=== PATIENT | male | born 1955 | race Caucasian/White ===

== ENCOUNTER 2017-01-16 01:09 | Inpatient (IN) ==
[2017-01-16] MEDS ORDERED: DUONEB (A & A) INH ONE (01:24)
[2017-01-16 01:33] LABS: MANUAL DIFF NEEDED? NO
[2017-01-16 01:35] LABS: BASO% 0.3 % (0.0-0.8); EOS# 0.07 X1000 (0.0-0.7); EOS% 0.5 % (0.0-10.0); HEMATOCRIT 48.7 % (42.0-52.0); HEMOGLOBIN 17.3 g/dL (14.0-18.0); IMM GRAN% 0.7 % (0.0-0.5); LYMPH# 5.01 X1000 (1.2-3.4); LYMPH% 35.6 % (20.5-51.1); MCH 32.3 PG (27-31); MCHC 35.5 g/dL (33-37); MCV 90.9 FL (81-99); MONO# 1.52 X1000 (0.11-0.59); MONO% 10.8 % (1.7-9.3); MPV 9.3 FL (7.4-10.4); NEUT% 52.1 % (42.2-75.2); PLT 302 X1000 (130-400); RBC 5.36 XMIL (4.7-6.1)
[2017-01-16 01:39] LABS: ALLEN TEST YES; BE -1.2 mmoll (-3.0-3.0); BLOOD TYPE ARTERIAL; DRAW SITE R BRACHIAL; METHB 1.6 % (0.0-1.5); PCO2(98.6) 50 mmHg (35-45); PO2(98.6) 92 mmHg (60-100); SAMPLE BLOOD; SAO2 98.9 % (95.0-100.0); THB 16.7 g/dL (11.5-17.4); pH(98.6) 7.32 (7.35-7.45)
[2017-01-16 01:41] LABS: MODALITY CANNULA
[2017-01-16 01:53] LABS: AGAP 12; ALBUMIN 4.5 g/dL (3.5-5.0); ALKALINE PHOSPHATASE 73 U/L (32-122); BUN 20 mg/dL (8-22); CALCIUM 9.2 mg/dL (8.8-10.2); CHLORIDE 97 mmol/L (98-107); COSMO 275; GOT 17 U/L (10-34); GPT 13 U/L (10-44); MAGNESIUM 1.9 mg/dL (1.5-2.7); POTASSIUM 4.5 mmol/L (3.5-5.1); SODIUM 136 mmol/L (136-145); TCO2 27 mmol/L (25-35); TOTAL BILIRUBIN 0.28 mg/dL (0.20-1.00)
[2017-01-16] MEDS ORDERED: SOLU-MEDROL IV ONE (02:22)
[2017-01-16] MEDS ORDERED: TYLENOL PO ONE (03:22)
--- NOTE | 2017-01-16 05:27 | EKG Report ---
Test Performed on : 01/16/2017 01:16:33 AM Test Reason : SOB Blood Pressure : / mmHG Vent. Rate : 125 BPM Atrial Rate : 125 BPM P-R Int : 124 ms QRS Dur : 074 ms QT Int : 312 ms P-R-T Axes : 085 073 080 degrees QTc Int : 450 ms Sinus tachycardia. Possible Left atrial enlargement Septal infarct , age undetermined Abnormal ECG When compared with ECG of 11-OCT-2015 04:23, No significant change was found Unconfirmed Result
[2017-01-16] MEDS ORDERED: NS 1,000 ML IV SCH (05:49)
[2017-01-16] MEDS: LOVENOX SUBQ SCH (06:22)
[2017-01-16] MEDS: SOLU-MEDROL IV SCH ×3 (06:22→20:34)
[2017-01-16] MEDS ORDERED: PNEUMOVAX 23 IM ONE (07:04)
[2017-01-16] MEDS: DUONEB (A & A) INH SCH ×5 (07:38→23:10)
--- NOTE | 2017-01-16 08:21 | HISTORY AND PHYSICAL ---
PRIMARY CARE PHYSICIAN: Dr. Joe Rubin. CHIEF COMPLAINT: Shortness of breath x2 days. HISTORY OF PRESENTING ILLNESS: A 61-year-old male with a history of COPD/emphysema who had presented to the emergency department with a 2 day history of having worsening shortness of breath. The patient states that he could not breathe and it seemed to be worsening. He was evaluated in the ER. He was given nebulizer treatments. He had some improvement but due to his presenting symptoms, it was thought that he would need hospitalization for further management. At the time of my examination, he stated he felt a little bit better but still was having some trouble breathing. He denied having any fevers, chills, chest pain, hemoptysis, melena, or weight changes but complained of shortness of breath and having cough. PAST MEDICAL HISTORY: Includes COPD/emphysema and hypertension. PAST SURGICAL HISTORY: None. ALLERGIES: No known drug allergies. CURRENT MEDICATIONS: As listed in the MAR. SOCIAL HISTORY: He has a 40 pack year history of smoking. Denies any history of alcohol or illicit drug use. FAMILY HISTORY: Positive for coronary artery disease in mother. REVIEW OF SYSTEMS: Twelve point review of systems listed as in the HPI. Other systems negative. PHYSICAL EXAMINATION: GENERAL: Cooperative, friendly male. He is resting more comfortably now. VITAL SIGNS: Temperature 98.8 degrees, pulse 127, respirations 34, blood pressure 183/126. HEENT: Atraumatic, normocephalic. Extraocular movements intact. PERRLA. NECK: No masses. CHEST: Rhonchi. CARDIOVASCULAR: Regular rate and rhythm. ABDOMEN: Soft. Positive bowel sounds. EXTREMITIES: No edema. NEUROLOGIC: He is awake, alert, oriented x3. : No bladder distention. SKIN: Warm. LABORATORIES AND STUDIES: WBCs 14.08, hemoglobin 17.3, hematocrit 48.7, platelets are 302,000. Sodium 136, potassium 4.5, chloride 97, BUN is 20, creatinine is 0.9, glucose is 110. ASSESSMENT: A 61-year-old male with a history of chronic obstructive pulmonary disease/emphysema and hypertension who had presented to the emergency department with a several day history of having shortness of breath. The patient will need hospitalization for further management. 1. Acute chronic obstructive pulmonary disease exacerbation. 2. Hypertension, uncontrolled. PLAN: 1. We will admit the patient to the medical floor with telemetry. 2. We will put patient on supplemental oxygen. 3. Continue with IV Solu-Medrol, and DuoNebs, and IV antibiotics. 4. We will monitor blood pressure closely and resume antihypertensive agents. 5. Put patient on DVT prophylaxis with Lovenox. 6. We will continue to follow and reassess. cc: Vickey Pedroza MD
--- NOTE | 2017-01-16 08:23 | Diag Imaging Result Document ---
PROCEDURE NAME: CHEST-PORTABLE - 01/16/2017 SINGLE FRONTAL RADIOGRAPH OF THE CHEST: COMPARISON: 09/05/2015. FINDINGS: The lungs are hyperinflated similar to the previous study suggesting COPD. The lungs are clear otherwise. There is no evidence of pleural fluid collection or pneumothorax. Cardiac silhouette and central vasculature are unremarkable. IMPRESSION: Stable COPD changes but no definite acute pathology.
[2017-01-16] MEDS: PRINIVIL PO SCH (09:52)
--- NOTE | 2017-01-16 14:39 | PROGRESS NOTE ---
DATE: 01/16/2017 SUBJECTIVE: Patient has no focal complaints. The patient is clinically improved. Wheezing has essentially stopped. We will continue steroids and antibiotics and follow clinically. He has not been initiated on antibiotics. He does have a little bit of a white count so I am going to put him on some doxycycline and we will continue to follow. cc: Jomar Fraser MD
[2017-01-16 16:34] LABS: URINE SOURCE CLEAN CATCH
[2017-01-16] MEDS: DOXYCYCLINE 100 MG in NS 250 ML IV SCH (16:57)
[2017-01-16 17:41] LABS: BILIRUBIN URINE NEGATIVE (NEGATIVE); BLOOD URINE TRACE-LYSED (NEGATIVE); CLARITY CLEAR (CLEAR); COLOR YELLOW; GLUCOSE URINE 250 mg/dL (NEGATIVE); LEUKOCYTES URINE NEGATIVE (NEGATIVE); NITRITE URINE NEGATIVE (NEGATIVE); PROTEIN URINE NEGATIVE (NEGATIVE); SP GRAVITY URINE 1.025; UROBILINOGEN URINE 0.2 EU/dL (0.2-1.0)
[2017-01-16 18:08] LABS: URINE CULTURE NEEDED? NO; URINE EPITHELIAL CELLS <10 /HPF (<10); URINE RBC <10 /HPF (<10); URINE WBC <10 /HPF (<10)
[2017-01-16 18:09] LABS: URINE CAST NONE SEEN /LPF; URINE CRYSTAL NONE SEEN /HPF
[2017-01-17] MEDS ORDERED: FLUZONE QUAD 2016-2017 SYRINGE IM ONE (00:01)
[2017-01-17] MEDS: DUONEB (A & A) INH SCH ×6 (02:39→23:17)
[2017-01-17] MEDS: SOLU-MEDROL IV SCH ×3 (04:37→19:47)
[2017-01-17] MEDS: DOXYCYCLINE 100 MG in NS 250 ML IV SCH ×2 (04:37→15:50)
[2017-01-17] MEDS: LOVENOX SUBQ SCH ×2 (04:37→06:36)
[2017-01-17 06:29] LABS: MANUAL DIFF NEEDED? NO
[2017-01-17] MEDS ORDERED: PNEUMOVAX 23 IM ONE (06:31)
[2017-01-17 06:42] LABS: BASO% 0.1 % (0.0-0.8); HEMATOCRIT 44.2 % (42.0-52.0); HEMOGLOBIN 15.7 g/dL (14.0-18.0); IMM GRAN# 0.06 X1000 (0.0-0.04); IMM GRAN% 0.5 % (0.0-0.5); LYMPH# 1.77 X1000 (1.2-3.4); LYMPH% 13.4 % (20.5-51.1); MCH 32.2 PG (27-31); MCHC 35.5 g/dL (33-37); MCV 90.8 FL (81-99); MONO# 0.83 X1000 (0.11-0.59); MONO% 6.3 % (1.7-9.3); MPV 9.3 FL (7.4-10.4); NEUT% 79.7 % (42.2-75.2); PLT 292 X1000 (130-400); RBC 4.87 XMIL (4.7-6.1)
[2017-01-17 07:17] LABS: AGAP 10; BUN 19 mg/dL (8-22); CALCIUM 9.4 mg/dL (8.8-10.2); CHLORIDE 98 mmol/L (98-107); COSMO 270; POTASSIUM 5.2 mmol/L (3.5-5.1); SODIUM 133 mmol/L (136-145); TCO2 25 mmol/L (25-35)
[2017-01-17] MEDS: PRINIVIL PO SCH (10:31)
--- NOTE | 2017-01-17 11:51 | PROGRESS NOTE ---
DATE: 01/17/2017 SUBJECTIVE: The patient's breathing is better. He still gets short of breath with exertion but overall feels much improved. OBJECTIVE: Vital signs: Blood pressure 139/82, heart rate of 87, respiratory rate of 14, temperature 97.8 degrees, 99% on 2 L. Cardiovascular: Regular rate and rhythm. Pulmonary: Bilateral breath sounds. Diminished at the bases. No wheezing. GI: Soft, nontender, nondistended. Bowel sounds are positive. LABORATORY DATA: White count 13, hemoglobin and hematocrit 15 and 44, platelets of 292,000. PROBLEM LIST: 1. Chronic obstructive pulmonary disease exacerbation, is resolving. We will continue to wean steroids. He is on nebulizer treatments, doxycycline. Will continue to follow closely. I think we will also evaluate for home oxygen. 2. Hypertension. Appears to be well controlled. DISPOSITION: If he qualifies for home oxygen I think he should be ready for discharge tomorrow. cc: Jomar Fraser MD
[2017-01-17] MEDS: TYLENOL PO PRN (19:50)
[2017-01-18] MEDS: DUONEB (A & A) INH SCH ×6 (03:07→22:47)
[2017-01-18] MEDS: DOXYCYCLINE 100 MG in NS 250 ML IV SCH ×2 (04:25→15:48)
[2017-01-18] MEDS: SOLU-MEDROL IV SCH ×5 (04:25→20:30)
[2017-01-18] MEDS: LOVENOX SUBQ SCH ×2 (04:28→06:03)
[2017-01-18 06:33] LABS: HEMATOCRIT 43.2 % (42.0-52.0); HEMOGLOBIN 15.2 g/dL (14.0-18.0); MCH 32.2 PG (27-31); MCHC 35.2 g/dL (33-37); MCV 91.5 FL (81-99); MPV 9.2 FL (7.4-10.4); RBC 4.72 XMIL (4.7-6.1)
[2017-01-18 06:51] LABS: AGAP 10; BUN 21 mg/dL (8-22); CALCIUM 9.1 mg/dL (8.8-10.2); CHLORIDE 95 mmol/L (98-107); COSMO 265; POTASSIUM 4.8 mmol/L (3.5-5.1); SODIUM 130 mmol/L (136-145); TCO2 25 mmol/L (25-35)
[2017-01-18] MEDS: PRINIVIL PO SCH (09:07)
--- NOTE | 2017-01-18 12:43 | PROGRESS NOTE ---
DATE: 01/18/2017 SUBJECTIVE: This is a 61-year-old with a history of COPD and emphysema, who had presented to the emergency department with a 2 day history of worsening shortness of breath. The patient states he could not breathe and seemed to be worsening. He was evaluated in the emergency room and given nebulized treatment with some improvement but still predominant shortness of breath and wheezing and admitted to the hospital. PAST MEDICAL HISTORY: COPD, emphysema, hypertension. OBJECTIVE: General: Today he looks comfortable. Awake and alert. He does feel better. Vital signs: Temp 98.0 degrees, pulse 80, respirations 19, blood pressure 140/82. HEENT: Pupils were equal and round. Neck: CVP less than 6 cm. Lungs: Clear in all lung vigil. Cardiovascular: Regular rate without murmur or S3. Abdomen: Soft. Skin: Warm and dry. Intake and output: Good urine output. LAB: White blood cell count 10,760, hematocrit 43, platelet count 285,000. Chemistry: Sodium 130, potassium 4.5, chloride 95, BUN 21, creatinine 0.8. Blood sugars 110, 125, 112. ASSESSMENT AND PLAN: 1. Chronic obstructive pulmonary disease exacerbation, improving, with some bronchospasm. Continue steroids, nebulized treatment. He is on doxycycline. Will evaluate for home O2. 2. Hypertension. Blood pressure appears well controlled. Nutrition looks good. 3. Reviewed his orders. He is on methylprednisone 40 mg IV q.8. He is on lisinopril 5 mg a day. cc: Stevie Kwon MD
[2017-01-18] MEDS: TYLENOL PO PRN (20:32)
[2017-01-19] MEDS: DUONEB (A & A) INH SCH ×6 (03:40→23:29)
[2017-01-19] MEDS: LOVENOX SUBQ SCH (05:05)
[2017-01-19] MEDS: DOXYCYCLINE 100 MG in NS 250 ML IV SCH ×2 (05:05→16:16)
[2017-01-19] MEDS: SOLU-MEDROL IV SCH ×2 (05:05→13:11)
[2017-01-19] MEDS: PRINIVIL PO SCH (08:59)
[2017-01-20] MEDS ORDERED: SOLU-MEDROL IV SCH (01:00)
[2017-01-20] MEDS: DUONEB (A & A) INH SCH ×3 (03:01→11:12)
[2017-01-20] MEDS: DOXYCYCLINE 100 MG in NS 250 ML IV SCH (05:00)
[2017-01-20] MEDS: LOVENOX SUBQ SCH (05:01)
[2017-01-20 08:04] VITALS: BP 152/86
[2017-01-20] MEDS: PRINIVIL PO SCH (08:11)
--- NOTE | 2017-01-20 09:52 | PROGRESS NOTE ---
DATE: 01/20/2017 SUBJECTIVE: He remains afebrile. He does feel better, breathing better, feels like he may be ready to go home tomorrow but he feels like he needs another day. Still some dyspnea with exertion, did not apparently qualify for home O2. OBJECTIVE: Vital signs: Temp 98.6 degrees. Pulse 94. Respirations 18. Blood pressure 142/79. HEENT: Pupils are equal, round. CVP less than 6 cm. Lungs: Clear. Decreased breath sounds both bases. Cardiovascular: Regular rhythm and rate without murmur or S3. Intake and Output: Good urine output, over 1500 mL. LABORATORY DATA: Lab reviewed from yesterday: Hematocrit is stable, white blood cell count was down to 10,000, electrolytes look good, creatinine 0.8. ASSESSMENT AND PLAN: 1. Chronic obstructive pulmonary disease exacerbation with some bronchospasm. Continue steroids, nebulized treatment, doxycycline. He does not qualify, apparently, for home O2. Will discuss with respiratory. He is improving, hopefully can go home tomorrow. 2. Hypertension. 3. Nutrition, looks good. REVIEW OF ORDERS: I reviewed his orders. I do not see any change at this point. He is on methylprednisone 40 mg IV q.8h and I will cut that down to 20 IV q.12 hours. cc: Stevie Kwon MD
--- NOTE | 2017-01-20 17:50 | DISCHARGE SUMMARY ---
ADMISSION DATE: 01/16/2017 DISCHARGE DATE: 01/20/2017 He is a patient of Dr. Joe Rubin presented with shortness of breath on 01/16/2017. A 61-year- old, history of COPD, emphysema, presented to the emergency department with a 2-day history of worsening shortness of breath. The patient states that he could not breathe very good and seemed to be worsening. He was evaluated in emergency room, given nebulized treatment with some improvement but felt he needed hospitalization, and states he does pretty good lying still, but when he gets up to move around he gets short of breath. He showed steady improvement with bronchodilators and IV Solu-Medrol and steroid inhaler but he does appear to need O2 at home especially with exertion so we will see if we can get him eligible for O2. He would like to go home on 01/20/2017. The blood pressure was well-controlled. EXAM: On discharge, temp 97.6 degrees, pulse 90, respirations 18, blood pressure 150/86. Lungs: Clear in all lung vigil. No wheezing. Decreased breath sounds both bases. Cardiovascular: Regular rhythm and rate without murmur or S3. Good urine output. No sign of pedal edema and CVP less than 6 cm. I am discharging him home. I will try and get him on O2 at 2 L per nasal cannula. He can continue his DuoNeb treatments at home as needed. Prinivil 5 mg a day. We will give him a Medrol Dosepak and home O2 at 2 L per nasal cannula. Have him follow up with Dr. Joe Rubin. cc: MD Joe Garrison MD
--- NOTE | 2017-02-07 13:13 | PROVIDER DOCUMENTATION ---
This chart was entered by Holly Butler Scribe, acting as scribe for Herman Whatley MD. HPI-Respiratory General - General Stated Complaint: SOB Time Seen by Provider: 01/16/17 01:09 Source: patient Allergies/Adverse Reactions: Patient Allergies Allergy/AdvReac Type Severity Reaction Status Date / Time No Known Allergies Allergy Verified 09/05/15 08:05 Home Medications: Home Medication List Medication Instructions Recorded Confirmed Last Taken Type Albuterol Sulfate Inhaler 2 puff INH Q6H PRN PRN 06/12/15 01/16/17 01/15/17 History [Ventolin Hfa] Albuterol [Albuterol Neb] 2.5 mg INH Q4H PRN PRN 06/12/15 01/16/17 01/15/17 History Pregabalin [Lyrica] 100 mg PO BID 01/16/17 01/16/17 01/15/17 History Fluticasone/Vilanterol [Breo 1 each IH DAILY #60 blst.w.dev 01/20/17 Unknown Rx Ellipta 200-25 Mcg INH] LISINOpril [Prinivil] 5 mg PO DAILY #30 tablet 01/20/17 Unknown Rx Methylprednisolone [Medrol Dosepak] 4 mg PO DIRECTED #7 package 01/20/17 Unknown Rx - History of Present Illness-Resp Nature of Presenting Problem: 61 year old M presents to the ED with a cc of shortness of breath. Pt states that it began a few days ago but today it has gotten worse. Pt states that he feels congested. On arrival to ED, pt is tripoding on EMS stretcher. PT states that he has been taking albuterol while at home. Severity in ED: reports: severe Onset/Duration: reports: 2 days ago Timing: reports: still present, getting worse Current Respiratory Medication Therapy: Initiated see nurses note Modifying Factors: improves with: sitting upright. worse with: exertion, lying down Associated Symptoms: reports: shortness of breath Similar Symptoms Previously?: Yes Recently seen or treated by another doctor?: No Review of Systems - Adult - REVIEW OF SYSTEMS - ADULT Constitutional: denies: chills, fever Eyes: reports: no symptoms reported Ears, Nose, Mouth & Throat: reports: no symptoms reported Cardiovascular: denies: chest pain, palpitations Respiratory: reports: shortness of breath. denies: cough Gastrointestinal: denies: nausea, vomiting Genitourinary: reports: no symptoms reported Musculoskeletal: reports: no symptoms reported Integumentary: reports: no symptoms reported Neurological: reports: no symptoms reported Psychiatric: reports: no symptoms reported Endocrine: reports: no symptoms reported Hematologic/Lymphatic: reports: no symptoms reported Allergic/Immunologic: reports: no symptoms reported All Other Systems: Reviewed and Negative Past History - Adult - PAST MEDICAL HISTORY-ADULT Review of Records: reports: Nursing Assessment Review, Medications Reviewed Major Childhood Illnesses: reports: denies history Cardiovascular: reports: HTN, hyperlipidemia Respiratory: reports: asthma, COPD - PRIOR SURGERIES/PROCEDURES Surgical/Procedure History: reports: none - IMMUNIZATION STATUS Childhood Immunizations: See Nurse Assessment Flu Vaccine: See Nurse Assessment - SOCIAL HISTORY Smoking: cigarettes Provider spent 3-5 mins advising pt. on dangers of tobacco.: Discussed manners to quit use, and f/u contacts for add'l counseling. Substance Use: none/never Alcohol Use Frequency: never Physical Exam-General - PHYSICAL EXAM-ADULT Initial Vital Signs Reviewed: Yes - CONSTITUTIONAL General Appearance: alert, severe distress - RESPIRATORY Respiratory: respiratory distress, decreased breath sounds, accessory muscle use , crackles, wheezing, increased rate, other (tripoding and pursed lip breathing) - CARDIOVASCULAR Cardiovascular: tachycardia - GASTROINTESTINAL (ABDOMEN) Abdominal Exam: non tender, soft - SKIN Integumentary: normal color, normal turgor, warm/dry - PSYCHIATRIC Psych/Mental Status: normal mood/affect, normal thought content, normal thought process, oriented x 3 Progress - PLAN OF CARE/RESULTS Progress/Plan/Lab Results: Orders Category Date Time Status Admit - [facility] Routine AdmDCTranf 01/16/17 05:49 Ordered Activity - Up with Assistance ORDERED Care 01/16/17 05:49 Active Intake and Output-Strict ORDERED Care 01/16/17 05:49 Active Nursing- Assist w/ IS as order ORDERED Care 01/16/17 05:49 Active Saline Loc DIRECTED Care 01/16/17 05:49 Completed Turn, Cough and Deep Breathe Q4HR.AWAKE Care 01/16/17 05:49 Active Vital Signs Order Q 4-HR ASSESS Care 01/16/17 05:49 Active Regular Diet Diet 01/16/17 04:58 Completed CHEST-PORTABLE [RAD] Stat Exams 01/16/17 01:22 Completed ABG [RESP] Routine Lab 01/16/17 01:30 Completed BASIC METABOLIC PANEL [CHEM] Routine Lab 01/17/17 06:05 Completed CBC WITH DIFF [HEME] Routine Lab 01/17/17 06:05 Completed CBC WITH ELECTRONIC DIFF [HEME] Stat Lab 01/16/17 00:10 Completed COMPREHENSIVE METABOLIC PANEL [CHEM] Stat Lab 01/16/17 00:10 Completed MAGNESIUM [CHEM] Stat Lab 01/16/17 00:10 Completed 0.9% Sodium Chloride Inj [Ns] 1,000 ml Med 01/16/17 05:49 Discontinued IV 80 mls/hr Acetaminophen [Tylenol] Med 01/16/17 03:22 Discontinued 650 mg PO NOW ONE Albuterol 2.5MG/Ipratrop 0.5MG [Duoneb (A & A)] Med 01/16/17 01:24 Discontinued 3 ml INH NOW ONE Albuterol 2.5MG/Ipratrop 0.5MG [Duoneb (A & A)] Med 01/16/17 07:30 Discontinued 3 ml INH RTQ4H Enoxaparin [Lovenox] Med 01/16/17 05:49 Discontinued 40 mg SUBQ Q24H LISINOpril [Prinivil] Med 01/16/17 09:00 Discontinued 5 mg PO DAILY Methylprednisolone Sod Succ [Solu-Medrol] Med 01/16/17 02:22 Discontinued 125 mg IV NOW ONE Methylprednisolone Sod Succ [Solu-Medrol] Med 01/16/17 05:49 Discontinued 80 mg IV Q8H Aerosol Treatments Routine Ot 01/16/17 01:25 Completed Aerosol Treatments Routine Ot 01/16/17 05:49 Completed Aerosol Treatments Stat Ot 01/16/17 01:25 Completed Aerosol Treatments Stat Ot 01/16/17 05:49 Completed Incentive Spirometer Q4HR.AWAKE Ot 01/16/17 09:00 Completed Incentive Spirometer Q4HR.AWAKE Ot 01/16/17 13:00 Completed Incentive Spirometer Q4HR.AWAKE Ot 01/16/17 17:00 Completed Incentive Spirometer Q4HR.AWAKE Ot 01/16/17 21:00 Completed Incentive Spirometer Q4HR.AWAKE Ot 01/17/17 01:00 Completed Incentive Spirometer Q4HR.AWAKE Ot 01/17/17 05:00 Completed Incentive Spirometer Q4HR.AWAKE Ot 01/17/17 09:00 Completed Oxygen Device Routine Ot 01/16/17 05:49 Completed Peak Flow BID Oth 01/16/17 09:00 Completed Peak Flow BID Oth 01/16/17 21:00 Completed Telemetry [OM.EQ] Routine Ot 01/16/17 05:49 Active EKG [EKG] Stat Ther 01/16/17 01:10 Draft Transfer/Admit Order [TRANSFER] Routine Transfer 01/16/17 04:57 Completed Result Diagrams: 01/18/17 06:00 01/18/17 06:00 - EKG 1 Time of EKG reading by physician:: 01:16 EKG Read and Signed by:: Herman Whatley EKG Interpretation (*Must complete 3 of following elements*): Abnormal Rate: 125 Rhythm: sinus tachycardia Flora: normal Comments: possible LAE Departure - Departure Time of Disposition Decision: 05:40 DIAGNOSIS: COPD exacerbation Disposition: ADMITTED INPATIENT 09 Certified Medical Emergency: Emergent Condition: Stable - Critical Care Note This patient required my direct personal management.: No This chart was documented by the indicated scribe, (Holly Butler, Belinda) and accurately reflects the services I performed and decisions made by me, Herman Whatley MD, as attested by the provider's signature.
== END 2017-01-20 14:26 | disposition home or self-care (01) ==
LOC: ED 01:09 → SUATTDRO 05:12 → 4N 05:12
PROVIDERS: ATTEND Emergency Medicine

== ENCOUNTER 2018-12-20 16:05 | Inpatient (IN) ==
[2018-12-20] MEDS ORDERED: NS 1,000 ML IV ONE (16:18)
[2018-12-20] MEDS ORDERED: DUONEB (A & A) INH ONE (16:18)
[2018-12-20] MEDS ORDERED: SOLU-MEDROL IV ONE (16:18)
[2018-12-20] MEDS ORDERED: LEVAQUIN 750 MG/D5W 750 MG/150 ML IVPB IV ONE (16:18)
[2018-12-20 16:40] LABS: ALLEN TEST YES; BE 8.1 mmoll (-3.0-3.0); BLOOD TYPE ARTERIAL; HCO3-(ACT) 31.2 mmoll (20.0-26.0); METHB 1.5 % (0.0-1.5); O2(CT) 19.4 mL/dL (15.0-23.0); O2HB 94.9 % (95.0-99.0); PO2(98.6) 158 mmHg (60-100); SAMPLE BLOOD; SAO2 99.5 % (95.0-100.0); THB 14.3 g/dL (11.5-17.4); pH(98.6) 7.33 (7.35-7.45)
[2018-12-20 16:42] LABS: MODALITY CANNULA
[2018-12-20 16:43] LABS: PCO2(98.6) 70 mmHg (35-45)
[2018-12-20 16:45] LABS: BASO# 0.03 X1000 (0.0-0.2); BASO% 0.4 % (0.0-0.8); EOS# 0.12 X1000 (0.0-0.7); EOS% 1.5 % (0.0-10.0); HEMATOCRIT 46.5 % (42.0-52.0); HEMOGLOBIN 14.9 g/dL (14.0-18.0); IMM GRAN# 0.03 X1000 (0.0-0.04); IMM GRAN% 0.4 % (0.0-0.5); LYMPH# 2.57 X1000 (1.2-3.4); LYMPH% 32.7 % (20.5-51.1); MCH 30.5 PG (27-31); MCV 95.3 FL (81-99); MONO# 0.93 X1000 (0.11-0.59); MONO% 11.8 % (1.7-9.3); MPV 9.6 FL (7.4-10.4); NEUT# 4.19 X1000 (1.4-6.5); NEUT% 53.2 % (42.2-75.2); PLT 244 X1000 (130-400); RBC 4.88 XMIL (4.7-6.1); RDW 12.7 % (11.5-14.5); WBC 7.87 X1000 (4.8-10.8)
[2018-12-20 17:11] LABS: MAGNESIUM 2.1 mg/dL (1.5-2.7)
[2018-12-20 17:14] LABS: INR 0.86; PROTIME 12.5 Seconds (11.0-16.0)
[2018-12-20 17:29] LABS: AGAP 11; ALBUMIN 4.9 g/dL (3.5-5.0); ALKALINE PHOSPHATASE 82 U/L (32-122); BUN 18 mg/dL (8-22); CHLORIDE 93 mmol/L (98-107); COSMO 278; CREATININE 0.7 mg/dL (0.7-1.2); ESTIMATED GFR > 60; GLUCOSE 102 mg/dL (70-104); GOT 18 U/L (10-34); GPT 12 U/L (10-44); SODIUM 138 mmol/L (136-145); TCO2 34 mmol/L (25-35); TOTAL BILIRUBIN 0.38 mg/dL (0.20-1.00); TOTAL PROTEIN 7.3 g/dL (6.3-8.3)
--- NOTE | 2018-12-20 17:36 | Diag Imaging Result Doc PS360 ---
CHEST-2 VIEWS - 12/20/2018 INDICATION: short of breath COMPARISON: 09/14/2018 FINDINGS: Stable advanced COPD. No infiltrates or edema. Heart size is normal. IMPRESSION: Advanced COPD. Electronically signed by Alexi Moore 12/20/2018 5:34 PM
--- NOTE | 2018-12-20 18:07 | PROVIDER DOCUMENTATION ---
This chart was entered by Ruth Wells Scribe, acting as scribe for Henry Conway MD. HPI-Respiratory General - General Stated Complaint: SOB Time Seen by Provider: 12/20/18 16:12 Source: patient Allergies/Adverse Reactions: Patient Allergies Allergy/AdvReac Type Severity Reaction Status Date / Time No Known Allergies Allergy Verified 09/13/18 21:56 Home Medications: Home Medication List Medication Instructions Recorded Confirmed Last Taken Type Albuterol Sulfate Inhaler 2 puff INH Q6H PRN PRN 06/12/15 09/13/18 01/15/17 History [Ventolin Hfa] Pregabalin [Lyrica] 100 mg PO BID 01/16/17 09/13/18 04/03/17 06:00 History LISINOpril [Prinivil] 30 mg PO DAILY 04/04/17 09/13/18 04/03/17 06:00 History Atorvastatin Calcium [Lipitor] 20 mg PO QPM 09/13/18 09/13/18 Unknown History Budesonide/Formoterol Fumarate 1 puff INH DAILY 09/13/18 09/13/18 Unknown Hist ory [Symbicort 160-4.5 Mcg Inhaler] Hydroxyzine [Atarax] 25 mg PO TID PRN 09/13/18 09/13/18 Unknown History Montelukast [Singulair] 10 mg PO DAILY 09/13/18 09/13/18 Unknown History Oxycodone HCl/Acetaminophen 1 each PO PRN PRN 09/13/18 09/13/18 Unknown History [Oxycodone-Acetaminophen 5-325] Nicotine Patch [Nicoderm Patch] 21 mg TD DAILY #14 patch.td24 09/17/18 Unknown Rx Omeprazole 20 mg PO DAILY #5 capsule.dr 09/17/18 Unknown Rx Prednisone 40 mg PO DAILY 4 Days #8 tab 09/17/18 Unknown Rx - History of Present Illness-Resp Nature of Presenting Problem: Patient is a 63 year old male who presents to the ED via EMS with shortness of breath. Patient states cough and nasal congestion. Patient states symptoms have been present for 3 days ago. EMS states patient's O2 sat was 97% on 2L. EMS states patient has not been taking his at home breathing treatments due to it causing throat pain. Patient denies fever. Quality of Pain: reports: tightness Severity in ED: reports: mild Onset/Duration: reports: 3 days ago Timing: reports: still present Cough Quality/Degree: reports: mild Current Respiratory Medication Therapy: Initiated see nurses note Modifying Factors: improves with: nothing Associated Symptoms: reports: cough, nasal congestion, shortness of breath, sore throat Similar Symptoms Previously?: Yes Recently seen or treated by another doctor?: No Review of Systems - Adult - REVIEW OF SYSTEMS - ADULT Constitutional: reports: no symptoms reported Eyes: reports: no symptoms reported Ears, Nose, Mouth & Throat: reports: sinus problem (congestion), throat pain. denies: ear pain, nose pain Cardiovascular: reports: no symptoms reported Respiratory: reports: cough, shortness of breath. denies: wheezing Gastrointestinal: reports: no symptoms reported Genitourinary: reports: no symptoms reported Musculoskeletal: reports: no symptoms reported Integumentary: reports: no symptoms reported Neurological: reports: no symptoms reported Psychiatric: reports: no symptoms reported Endocrine: reports: no symptoms reported Hematologic/Lymphatic: reports: no symptoms reported Allergic/Immunologic: reports: no symptoms reported All Other Systems: Reviewed and Negative Past History - Adult - PAST MEDICAL HISTORY-ADULT Review of Records: reports: Nursing Assessment Review, Medications Reviewed, Social history reviewed & non-contributory. Major Childhood Illnesses: reports: denies history Cardiovascular: reports: HTN, hyperlipidemia Respiratory: reports: asthma, COPD Gastrointestinal: reports: denies history Obstetrical/Gynecological: reports: denies history Genitourinary: reports: denies history Musculoskeletal: reports: denies history Neurological: reports: denies history Psychiatric: reports: denies history Endocrine/Immune: reports: denies history Other Conditions: reports: denies history - PRIOR SURGERIES/PROCEDURES Surgical/Procedure History: reports: none - IMMUNIZATION STATUS Childhood Immunizations: See Nurse Assessment Flu Vaccine: See Nurse Assessment - FAMILY HISTORY Family History: reviewed, not pertinent - SOCIAL HISTORY Smoking: cigarettes, less than 1 pack/day Provider spent 3-5 mins advising pt. on dangers of tobacco.: Discussed manners to quit use, and f/u contacts for add'l counseling. Substance Use: denies Physical Exam-General - PHYSICAL EXAM-ADULT Initial Vital Signs Reviewed: Yes - CONSTITUTIONAL General Appearance: alert, no apparent distress - HEAD, EARS, NOSE, MOUTH & THROAT HENMT: normal ENT inspection - RESPIRATORY Respiratory: chest non-tender, rhonchi (diffuse bilaterally), other (tight breath sounds) - CARDIOVASCULAR Cardiovascular: normal peripheral pulses, tachycardia - GASTROINTESTINAL (ABDOMEN) Abdominal Exam: normal bowel sounds, non tender, soft - SKIN Integumentary: normal color, normal turgor, warm/dry - NEUROLOGIC Neurologic: grossly normal - PSYCHIATRIC Psych/Mental Status: normal mood/affect, oriented x 3 Progress - PLAN OF CARE/RESULTS Progress/Plan/Lab Results: Vital Signs - 8 hr 12/20/18 16:31 12/20/18 16:39 Temperature 98.4 F Pulse Rate 104 H 104 H Respiratory Rate 22 20 Blood Pressure 186/103 O2 Sat by Pulse Oximetry 100 Laboratory Results - last 24 hr 12/20/18 12/20/18 12/20/18 16:22 16:22 16:22 WBC 7.87 RBC 4.88 Hgb 14.9 Hct 46.5 MCV 95.3 MCH 30.5 MCHC 32.0 L RDW Std Deviation 12.7 Plt Count 244 MPV 9.6 Immature Gran % (Auto) 0.4 Neut % (Auto) 53.2 Lymph % (Auto) 32.7 [place] % (Auto) 11.8 H Eos % (Auto) 1.5 Baso % (Auto) 0.4 Immature Gran # (Auto) 0.03 Neut # (Auto) 4.19 Lymph # (Auto) 2.57 [place] # (Auto) 0.93 H Eos # (Auto) 0.12 Baso # (Auto) 0.03 PT INR PTT (Actin FS) Specimen Type Sample Site pH pCO2 pO2 HCO3 Base Excess Oxyhemoglobin ABG O2 Sat (Calculated) ABG O2 Saturation ABG Carboxyhemoglobin ABG Methemoglobin Stevie Test A-a O2 Difference Total Hemoglobin Lactate Liter Flow Blood Gas Modality FiO2 % Sodium Potassium Chloride Carbon Dioxide Anion Gap BUN Creatinine Estimated GFR/1.73 m2 BUN/Creatinine Ratio Glucose Calculated Osmolality Calcium Magnesium 2.1 Total Bilirubin AST ALT Alkaline Phosphatase Creatine Kinase 157 Troponin T Zvi-C-Egvydhqzaze Pept Total Protein Albumin Globulin Albumin/Globulin Ratio Plasma Lactate 2.0 12/20/18 12/20/18 12/20/18 16:22 16:22 16:22 WBC RBC Hgb Hct MCV MCH MCHC RDW Std Deviation Plt Count MPV Immature Gran % (Auto) Neut % (Auto) Lymph % (Auto) [place] % (Auto) Eos % (Auto) Baso % (Auto) Immature Gran # (Auto) Neut # (Auto) Lymph # (Auto) [place] # (Auto) Eos # (Auto) Baso # (Auto) PT 12.5 INR 0.86 PTT (Actin FS) 30.0 Specimen Type Sample Site pH pCO2 pO2 HCO3 Base Excess Oxyhemoglobin ABG O2 Sat (Calculated) ABG O2 Saturation ABG Carboxyhemoglobin ABG Methemoglobin Stevie Test A-a O2 Difference Total Hemoglobin Lactate Liter Flow Blood Gas Modality FiO2 % Sodium Potassium Chloride Carbon Dioxide Anion Gap BUN Creatinine Estimated GFR/1.73 m2 BUN/Creatinine Ratio Glucose Calculated Osmolality Calcium Magnesium Total Bilirubin AST ALT Alkaline Phosphatase Creatine Kinase Troponin T < 0.010 Xzk-G-Umeuxxajryo Pept 40 Total Protein Albumin Globulin Albumin/Globulin Ratio Plasma Lactate 12/20/18 12/20/18 16:22 16:30 WBC RBC Hgb Hct MCV MCH MCHC RDW Std Deviation Plt Count MPV Immature Gran % (Auto) Neut % (Auto) Lymph % (Auto) [place] % (Auto) Eos % (Auto) Baso % (Auto) Immature Gran # (Auto) Neut # (Auto) Lymph # (Auto) [place] # (Auto) Eos # (Auto) Baso # (Auto) PT INR PTT (Actin FS) Specimen Type ARTERIAL Sample Site R RADIAL pH 7.33 L pCO2 70 H* pO2 158 H HCO3 31.2 H Base Excess 8.1 H Oxyhemoglobin 94.9 L ABG O2 Sat (Calculated) 19.4 ABG O2 Saturation 99.5 ABG Carboxyhemoglobin 3.10 H ABG Methemoglobin 1.5 Stevie Test YES A-a O2 Difference -46.0 Total Hemoglobin 14.3 Lactate 0.90 Liter Flow 2.0 Blood Gas Modality CANNULA FiO2 % 28.0 Sodium 138 Potassium 5.0 Chloride 93 L Carbon Dioxide 34 Anion Gap 11 BUN 18 Creatinine 0.7 Estimated GFR/1.73 m2 > 60 BUN/Creatinine Ratio 26 Glucose 102 Calculated Osmolality 278 Calcium 10.0 Magnesium Total Bilirubin 0.38 AST 18 ALT 12 Alkaline Phosphatase 82 Creatine Kinase Troponin T Vkx-O-Tfdrgnecejs Pept Total Protein 7.3 Albumin 4.9 Globulin 2.4 Albumin/Globulin Ratio 2.0 Plasma Lactate Orders Category Date Time Status Nursing- Obtain EKG once Care 12/20/18 16:17 Active Saline Loc NOW Care 12/20/18 16:16 Active CHEST-2 VIEWS [RAD] Stat Exams 12/20/18 16:17 Completed ABG [RESP] Routine Lab 12/20/18 16:30 Completed BLOOD CULTURE [BLDCUL] Stat Lab 12/20/18 16:22 Received CBC WITH ELECTRONIC DIFF [HEME] Stat Lab 12/20/18 16:22 Completed CK PROFILE [SP CHEM] Stat Lab 12/20/18 16:22 Completed CMP [COMPREHENSIVE METABOLIC PANEL] [CHEM] Stat Lab 12/20/18 16:22 Completed INFLUENZA SCREEN A/B Stat Lab 12/20/18 17:52 Received LACTATE, PLASMA [CHEM] Stat Lab 12/20/18 16:22 Completed MAGNESIUM [CHEM] Stat Lab 12/20/18 16:22 Completed PRO B-NATRIURETIC PEPTIDE Stat Lab 12/20/18 16:22 Completed PROTIME WITH INR [COAG] Stat Lab 12/20/18 16:22 Completed PTT [COAG] Stat Lab 12/20/18 16:22 Completed TROPONIN T Stat Lab 12/20/18 16:22 Completed 0.9% Sodium Chloride Inj [Ns] 1,000 ml Med 12/20/18 16:18 Discontinued IV 999 mls/hr Albuterol 2.5MG/Ipratrop 0.5MG [Duoneb (A & A)] Med 12/20/18 16:18 Discontinued 9 ml INH NOW ONE Levofloxacin 750 mg/D5w [Levaquin 750 mg/D5w] Med 12/20/18 16:18 Discontinued 750 mg in 150 ml IV NOW Methylprednisolone Sod Succ [Solu-Medrol] Med 12/20/18 16:18 Discontinued 125 mg IV NOW ONE Aerosol Treatments Routine Oth 12/20/18 16:18 Completed Aerosol Treatments Stat Oth 12/20/18 16:18 Completed BIPAP Stat Oth 12/20/18 17:47 Active EKG [EKG] Stat Ther 12/20/18 16:17 Ordered Result Diagrams: 12/20/18 16:22 12/20/18 16:22 - REASSESSMENT Reassessment #1 Time Reassessed: 17:49 Status: unchanged - EKG 1 Time of EKG reading by physician:: 16:42 EKG Read and Signed by:: Henry Conway EKG Interpretation (*Must complete 3 of following elements*): Abnormal Rate: 92 Rhythm: sinus rhythm with short AL [place]: normal AL Interval: normal Comments: otherwise normal ECG - XRAY 1 XRAY Study: Chest Impression: Abnormal, See EMR Report (CHEST-2 VIEWS - 12/20/2018 INDICATION: short of breath COMPARISON: 09/14/2018 FINDINGS: Stable advanced COPD. No infiltrates or edema. Heart size is normal. IMPRESSION: Advanced COPD. Electronically signed by Alexi Moore 12/20/2018 5:34 PM 12/20/18 1734 Interpreting Physician: Alexi Moore MD Dictated Date/Time: 12/20/18 1730 cc: Henry Conway MD; Francisca Markham) - CONSULTS/PCP/HOSPITALIST Notification #1 *Consult/PCP/Hospitalist*: DAVID Lindo paged for consult at 1751 Time Discussed: 18:06 (admit to [facility]) Consult Disposition: Admit Departure - Departure Date of Disposition Decision: 12/20/18 Time of Disposition Decision: 17:48 DIAGNOSIS: Respiratory acidosis, COPD exacerbation, Tobacco use disorder Disposition: ADMITTED INPATIENT 09 Certified Medical Emergency: Emergent Condition: Fair Referrals and Follow-Ups: Francisca Markham CRNP [Primary Care Provider] - Discharge Education: Steps to Quit Smoking, [id number] - Critical Care Note This patient required my direct & personal management of CC.: Yes Total Time (mins): 38 Critical Care Statement: This patient required my direct personal management to treat or rule out processes, the absence of which, could potentiallly result in sudden, clinically significant life or limb threatening deterioration. Attestation - Physician/ GARCÍA Attestation Patient care was provided by Advanced Practice Provider:: No The physician spent face to face time with patient:: Yes Advanced Practice Provider documentation review:: Supervising physician onsite and consulted in the evaluation and care of this patient. The physician did have a face to face encounter with the patient. This chart was documented by the indicated scribe, (Ruth Wells Scribe) and accurately reflects the services I performed and decisions made by me, Henry Conway MD, as attested by the provider's signature.
[2018-12-20 20:34] LABS: ALLEN TEST YES; BE 3.4 mmoll (-3.0-3.0); BLOOD TYPE ARTERIAL; HCO3-(ACT) 27.5 mmoll (20.0-26.0); METHB 1.1 % (0.0-1.5); O2(CT) 18.8 mL/dL (15.0-23.0); O2HB 95.3 % (95.0-99.0); PO2(98.6) 97 mmHg (60-100); SAMPLE BLOOD; pH(98.6) 7.35 (7.35-7.45)
[2018-12-20 20:38] LABS: MODALITY CANNULA; PCO2(98.6) 55 mmHg (35-45)
[2018-12-20] MEDS ORDERED: DUONEB (A & A) INH PRN (23:14)
[2018-12-20] MEDS ORDERED: SOLU-MEDROL IV SCH (23:15)
[2018-12-20] MEDS ORDERED: PERCOCET-5 PO PRN (23:43)
[2018-12-21] MEDS: DUONEB (A & A) INH SCH ×6 (00:21→21:35)
[2018-12-21] MEDS: LYRICA PO SCH ×2 (01:18→20:09)
--- NOTE | 2018-12-21 02:43 | PROGRESS NOTE ---
DATE: 12/20/2018 HISTORY AND PHYSICAL ADDENDUM: CHIEF COMPLAINT: Shortness of breath. HISTORY OF PRESENT ILLNESS: This is a 63-year-old gentleman with known COPD, presenting with progressive shortness of breath. He came in for evaluation. He has had cough. No fevers. Symptoms been there for about 3 days. He still smokes about a pack a day, maybe a little less, but he at least has a 37-lply-tcml history of smoking. When I listen to him later in the day, his breathing was improved. He did have some hypercapnia and had to be placed on BiPAP, but that has since improved. He will be admitted for COPD exacerbation and hypercapnic respiratory failure. We will continue breathing treatments, steroids, and follow closely. Overall, he is much improved. We will use BiPAP intermittently. I do not think he is requiring it now. He seems to have stabilized. We will continue empiric antibiotics, steroids. I do not think he has an infiltrate at this point, just significant COPD. This is a [id number] encounter note with Francisca Carrillo. cc: Jomar Fraser MD
[2018-12-21 04:53] LABS: ALLEN TEST YES; BLOOD TYPE ARTERIAL; HCO3-(ACT) 31.2 mmoll (20.0-26.0); METHB 0.6 % (0.0-1.5); O2(CT) 16.3 mL/dL (15.0-23.0); O2HB 96.4 % (95.0-99.0); PO2(98.6) 86 mmHg (60-100); SAMPLE BLOOD; pH(98.6) 7.41 (7.35-7.45)
[2018-12-21 04:54] LABS: MODALITY CANNULA
[2018-12-21 04:55] LABS: PCO2(98.6) 54 mmHg (35-45)
[2018-12-21] MEDS: LOVENOX SUBQ SCH (06:27)
[2018-12-21] MEDS: PRILOSEC PO SCH (06:27)
[2018-12-21] MEDS ORDERED: TYLENOL PO PRN (07:05)
[2018-12-21] MEDS ORDERED: ZOFRAN IV PRN (07:06)
[2018-12-21 07:15] LABS: HEMATOCRIT 37.2 % (42.0-52.0); HEMOGLOBIN 12.2 g/dL (14.0-18.0); LYMPH% 21.5 % (20.5-51.1); MCH 30.4 PG (27-31); MCHC 32.8 g/dL (33-37); MCV 92.8 FL (81-99); MONO# 0.13 X1000 (0.11-0.59); MONO% 3.1 % (1.7-9.3); MPV 9.8 FL (7.4-10.4); NEUT# 3.16 X1000 (1.4-6.5); NEUT% 75.4 % (42.2-75.2); PLT 206 X1000 (130-400); RBC 4.01 XMIL (4.7-6.1); WBC 4.19 X1000 (4.8-10.8)
[2018-12-21 07:33] LABS: AGAP 7; BUN 18 mg/dL (8-22); CALCIUM 9.3 mg/dL (8.8-10.2); CHLORIDE 95 mmol/L (98-107); COSMO 271; CREATININE 0.6 mg/dL (0.7-1.2); ESTIMATED GFR > 60; GLUCOSE 140 mg/dL (70-104); MAGNESIUM 1.8 mg/dL (1.5-2.7); POTASSIUM 4.5 mmol/L (3.5-5.1); SODIUM 133 mmol/L (136-145); TCO2 31 mmol/L (25-35)
[2018-12-21] MEDS: ADVAIR 250/50 DISKUS INH SCH ×2 (08:04→21:35)
[2018-12-21] MEDS: PRINIVIL PO SCH (08:41)
[2018-12-21] MEDS ORDERED: LYRICA PO SCH (09:00)
--- NOTE | 2018-12-21 10:49 | HISTORY AND PHYSICAL ---
PRIMARY CARE PHYSICIAN: DAVID Abdalla CHIEF COMPLAINT: Shortness of breath. HISTORY OF PRESENT ILLNESS: Mr. Dyson is a 63-year-old male with a past medical history most notable for nicotine dependency, COPD on home oxygen per nasal cannula at 2 to 3 L, chronic hypoxic and hypercapnic respiratory failure, hypertension and hyperlipidemia. Mr. Dyson presented to the ER today with worsening shortness of breath that progressively got worse over approximately 3 days. He denied any fever, body aches or chills. He has reported a cough as well. Upon questioning the patient, the patient reports that he has been taking his regularly prescribed home medications of his nebulizer treatments and inhalers. He denies any headache, chest pain, abdominal pain, nausea, vomiting or diarrhea. He denies any dysuria or urinary frequency. The patient states that he occasionally has swelling in his bilateral lower extremities, though this is not present at this time. He did report some dizziness on Sunday, though he states this was secondary to taking his blood pressure medicine, and his blood pressure had dropped fairly on the low side, and he became dizzy secondary to this. The patient states that since then, his blood pressure has improved, and he has not had any further episodes of dizziness. Upon arrival to the ED, the patient was slightly tachypneic with a respiratory rate of 22. Arterial blood gases did reveal that he had some hypercapnia with a CO2 of 70. They did briefly place him on BiPAP, though this has since been removed. The patient at this time does appear that he is much better. He is sitting in bed. He is not in any respiratory distress. He does not actually even appear tachypneic or dyspneic at this time. He is able to speak in full sentences. He does still have some diminished lung sounds in bilateral lung vigil, though there was no wheezing or rhonchi noted at this time. The patient will be admitted for further treatment and evaluation of his COPD exacerbation. REVIEW OF SYSTEMS: A 14-point review of systems was conducted with the patient, and all were negative except for pertinent positives mentioned in the above HPI. PAST MEDICAL HISTORY: 1. COPD on home oxygen with nasal cannula at 2 to 3 L. 2. Chronic hypoxic and hypercapnic respiratory failure. 3. Hypertension. 4. Hyperlipidemia. 5. Nicotine dependence. PAST SURGICAL HISTORY: The patient denies any previous surgeries. SOCIAL HISTORY: The patient does have a 40 plus pack year history of smoking. He still does currently smoke at this time, though he states he has reduced this down to approximately 2 cigarettes a day. There is no known alcohol or illicit drug use. The patient is retired. FAMILY HISTORY: Positive for his mother passing away secondary to an aneurysm. She also did have a history of heart disease. His father secondary to a myocardial infarction. ALLERGIES: The patient has no known allergies. HOME MEDICATIONS: 1. Ventolin HFA inhaler 2 puffs inhaled q.6 hours p.r.n. 2. Lipitor 20 mg p.o. q.p.m. 3. Advair Diskus 250/50 one puff twice a day. 4. Lisinopril 30 mg p.o. daily. 5. Singulair 10 mg p.o. at bedtime. 6. Percocet 5 mg 1 p.o. p.r.n. as directed. 7. Lyrica 100 mg p.o. b.i.d. DIAGNOSTIC DATA: White blood cell count is 7870, hemoglobin 14.9, hematocrit 46.5, platelet count 244. PT is 12.5. INR is 0.86. PTT is 30. Sodium is 138, potassium 5, chloride 93, serum bicarb is 34, BUN is 18, creatinine 0.7, GFR greater than 60, glucose 102, calcium 10, magnesium 2.1. Liver function tests were within normal limits. CK is 157. Troponin less than 0.01. ProBNP is 40. Arterial blood gases were obtained on FiO2 of 28%, and initial ABGs were pH of 7.33, pCO2 of 70, pO2 of 158, HCO3 is 31.2, base excess 8.1, with an oxyhemoglobin of 94.9, O2 saturation was 99.5, carboxyhemoglobin was 3.1. Since that time, the patient's arterial blood gases have improved. Chest x-ray showed advanced COPD, though there were no infiltrates or edema noted. EKG showed sinus rhythm with a short [place] at a rate of 92 with a QTC of 457. PHYSICAL EXAMINATION: VITAL SIGNS: Temperature is 98.2, heart rate 111, respirations 20, blood pressure is 167/83, oxygen saturation is 99% on nasal cannula at 2.5 L. Since the time of my initial examination, the patient's heart rate has improved to 95, respirations are 18, and blood pressure has improved as well to 112/68. GENERAL: Mr. Dyson is a pleasant 63-year-old male. He was resting on the stretcher. He was in no acute distress. He was awake and alert and able to answer questions appropriately. HEENT: Head is atraumatic and normocephalic. Pupils are equal, round and reactive to light, were 3 mm bilaterally and brisk. Oral mucosa was moist. Oropharynx was clear. NECK: Supple. Trachea midline. CARDIOVASCULAR: The patient has S1 and S2. No murmurs, gallops or rubs appreciated with a regular rate and rhythm. PULMONARY: The patient has symmetrical chest expansion bilaterally. Lung sounds were diminished throughout bilateral lung vigil. At this time, the patient did not have any wheezing or rhonchi noted. ABDOMEN: Soft, nontender and nondistended. Bowel sounds were present in all 4 quadrants and were normoactive. EXTREMITIES: No cyanosis or edema noted. Pulse, motor and sensory intact in all extremities. Radial pulses and pedal pulses are 2+ bilaterally. INTEGUMENTARY: The patient's skin is pink, warm and dry. NEUROLOGICAL: The patient is alert and oriented to person, place, time and situation. There does not appear to be any focal neurological deficits noted. ASSESSMENT AND PLAN: 1. Chronic obstructive pulmonary disease exacerbation. For further treatment of this, we have placed the patient with scheduled DuoNeb treatments. We have also continued his Advair as well. We have placed him with IV Solu Medrol 60 mg IV q.12 hours and have placed him with empiric antibiotic coverage of Levaquin 750 mg IV q.24 hours. Blood cultures have been obtained, and we are awaiting those results at this time. His influenza screen was negative. As previously mentioned, since the patient's initial arrival to the ER, his respiratory status has markedly improved, though we will continue to monitor this closely. 2. Chronic hypoxic and hypercapnic respiratory failure. We will continue with his oxygen supplementation with nasal cannula at 2 to 3 L. We will continue to monitor his respiratory status closely. We will also continue with treatment as mentioned above for number 1. 3. Hypertension. We will continue his lisinopril. 4. Hyperlipidemia. We will continue with atorvastatin. 5. Nicotine dependence. We did deputy chief counsel the patient on the importance of smoking cessation given his history of COPD. The patient states he is trying to quit. He has significantly reduced his number of cigarettes per day. We will continue to deputy chief counsel the patient on this throughout his admission and upon discharge. 6. DVT prophylaxis will be provided with Lovenox 40 mg subcutaneously q.a.m. The patient has been placed on the Medical Floor with telemetry. He will have vital signs q.8 hours, do strict intake and output. He will be on a heart healthy diet. We will repeat a CBC, BMP and magnesium in the morning. Further orders and recommendations pending hospital course, diagnostic studies and physician evaluation. Dictated by DAVID Mario for Jomar Fraser MD cc: Jomar Fraser MD
[2018-12-21] MEDS ORDERED: NICODERM PATCH TD ONE (11:23)
[2018-12-21] MEDS: PREDNISONE PO SCH (11:49)
--- NOTE | 2018-12-21 12:54 | PROGRESS NOTE ---
DATE: 12/21/2018 INTERVAL HISTORY: Patient was admitted for acute exacerbation of chronic hypercarbic respiratory failure due to COPD acute exacerbation. He was started on intravenous steroids and levofloxacin. SUBJECTIVE: He is feeling much better. He is still feeling a little weak, bilateral lower extremity. He denies more than usual cough or feeling short of breath. I discussed with him about quitting smoking and counseled him about it. PHYSICAL EXAMINATION: Vital signs: Temperature 98.4 degrees, pulse 98, respiratory rate 20, blood pressure 120/60, saturating 100% on 2 L nasal cannula. General: He does not appear in any acute distress. HEENT: Oral cavity is moist. Lungs: Air entry bilaterally equal. End expiratory wheezes bilateral infrascapular region. No rhonchi or crackles. Heart: S1, S2 normal. No murmur, rub or gallop. Abdomen: Soft, nontender. No lower extremity edema. LABORATORY DATA: Suggestive of no leukocytosis, stable hemoglobin, hematocrit, and platelet count. He has chronic hypercarbic respiratory failure with pH of 7.4 which appears compensated, hyponatremia, hypochloremia, and normal kidney function. MICROBIOLOGY: Influenza swab was negative. Blood culture no growth to date. IMAGING: Chest x-ray on admission did not have any infiltrate. ASSESSMENT AND PLAN: 1. Acute on chronic hypercarbic, hypercapnic respiratory failure due to acute exacerbation of chronic obstructive pulmonary disease. He has improved on my clinical examination and I will change his steroids from IV to p.o. Continue him on intravenous levofloxacin considering he has required noninvasive ventilation on admission plus frequent COPD exacerbation, though his chest x-ray did not have infiltrate. 2. Chronic hypoxic respiratory failure. Continue his home oxygen of 2 L. Currently appears well compensated. 3. Others. Continue home lisinopril for essential hypertension, atorvastatin for hyperlipidemia, nicotine patch for his tobacco abuse, enoxaparin for deep venous thrombosis prophylaxis. 4. Disposition. Patient remains inside the hospital while we monitor his respiratory status. If he continues to do better, my plan is to discharge him home tomorrow or day after tomorrow. Plan of care was discussed with him. All of his questions have been answered. I will also continue his home Advair and montelukast. cc: Jimbo Schultz MD
[2018-12-21] MEDS: LEVAQUIN 750 MG/D5W 750 MG/150 ML IVPB IV SCH (16:23)
[2018-12-21] MEDS: FLONASE NAS SCH (20:08)
[2018-12-21] MEDS: SINGULAIR PO SCH (20:09)
[2018-12-21] MEDS: LIPITOR PO SCH (20:10)
[2018-12-22] MEDS: DUONEB (A & A) INH SCH ×4 (03:35→21:20)
[2018-12-22] MEDS: LOVENOX SUBQ SCH (06:29)
[2018-12-22] MEDS: PRILOSEC PO SCH (06:29)
[2018-12-22] MEDS: ADVAIR 250/50 DISKUS INH SCH ×2 (08:20→21:20)
[2018-12-22] MEDS: PRINIVIL PO SCH (08:52)
[2018-12-22] MEDS: LYRICA PO SCH ×2 (08:53→20:27)
[2018-12-22] MEDS: PREDNISONE PO SCH (08:53)
[2018-12-22] MEDS: FLONASE NAS SCH (08:54)
[2018-12-22] MEDS: NICODERM PATCH TD SCH (14:07)
--- NOTE | 2018-12-22 16:53 | PROGRESS NOTE ---
DATE: 12/22/2018 Interval history. No acute overnight events. SUBJECTIVE: Patient denies any chest pain, shortness of breath, he is feeling weak. Temperature 98.4 degrees, pulse 89, respiratory rate of 20, blood pressure 120/71, saturating 97% 2 L nasal cannula. PHYSICAL EXAMINATION: General: Does not appear in any acute distress. Oral cavity is moist. Air entry bilaterally equal. No wheeze, rhonchi, crackles. S1, S2 normal. No murmur, rub, or gallop. Abdomen: Soft, nontender. No lower extremity edema. Neurologic: Alert and oriented x3. He had strength which is 5/5 on bilateral hip, knee, ankle, and interphalangeal joints of feet. His ankle jerks and knee jerks are bilaterally equal adequate. He does have a degree of hyperreflexia at ankle jerk though. LABORATORY DATA: No new lab data today. ASSESSMENT AND PLAN: 1. Acute chronic obstructive pulmonary disease exacerbation leading to acute on chronic hypercapnic respiratory failure. Continue levofloxacin intravenously and p.o. steroids. He on admission did require brief period of noninvasive ventilation with BiPAP. Continue nasal cannula oxygenation. 2. Chronic hypoxic respiratory failure. Continue home 2 L nasal cannula. 3. Essential hypertension. Continue home lisinopril, continue atorvastatin for hyperlipidemia, nicotine patch for tobacco abuse, enoxaparin for DVT prophylaxis. 4. Bilateral lower extremity intermittent weakness. I discussed with him about following up with his pain doctor and discussing about need for CT scan of his spine as an outpatient. I also encouraged him to come out of bed, walk with someone's help and see how he does. Plan of care discussed with him. All of his questions have been answered. I am anticipating discharge in next 24 to 48 hours. cc: Jimbo Schultz MD
[2018-12-22] MEDS: LEVAQUIN 750 MG/D5W 750 MG/150 ML IVPB IV SCH (17:44)
[2018-12-22] MEDS: SINGULAIR PO SCH (20:27)
[2018-12-22] MEDS: LIPITOR PO SCH (20:27)
[2018-12-23] MEDS: DUONEB (A & A) INH SCH ×2 (03:35→09:58)
[2018-12-23 04:47] VITALS: BP 114/67
[2018-12-23] MEDS: LOVENOX SUBQ SCH (06:33)
[2018-12-23] MEDS: PRILOSEC PO SCH (06:33)
[2018-12-23 08:09] LABS: BASO# 0.01 X1000 (0.0-0.2); BASO% 0.1 % (0.0-0.8); EOS# 0.01 X1000 (0.0-0.7); EOS% 0.1 % (0.0-10.0); HEMATOCRIT 37.1 % (42.0-52.0); HEMOGLOBIN 12.5 g/dL (14.0-18.0); IMM GRAN# 0.02 X1000 (0.0-0.04); IMM GRAN% 0.2 % (0.0-0.5); LYMPH# 3.28 X1000 (1.2-3.4); LYMPH% 38.3 % (20.5-51.1); MCH 31.2 PG (27-31); MCHC 33.7 g/dL (33-37); MCV 92.5 FL (81-99); MONO# 0.96 X1000 (0.11-0.59); MONO% 11.2 % (1.7-9.3); MPV 9.6 FL (7.4-10.4); NEUT# 4.29 X1000 (1.4-6.5); NEUT% 50.1 % (42.2-75.2); PLT 205 X1000 (130-400); RBC 4.01 XMIL (4.7-6.1); RDW 12.5 % (11.5-14.5); WBC 8.57 X1000 (4.8-10.8)
[2018-12-23 08:25] LABS: AGAP 8; BUN 21 mg/dL (8-22); CALCIUM 9.1 mg/dL (8.8-10.2); CHLORIDE 99 mmol/L (98-107); COSMO 276; CREATININE 0.8 mg/dL (0.7-1.2); ESTIMATED GFR > 60; GLUCOSE 85 mg/dL (70-104); SODIUM 137 mmol/L (136-145); TCO2 30 mmol/L (25-35)
--- NOTE | 2018-12-23 08:58 | EKG Report ---
Test Performed on : 12/20/2018 4:42:29 PM Test Reason : SOB Blood Pressure : / mmHG Vent. Rate : 092 BPM Atrial Rate : 092 BPM P-R Int : 086 ms QRS Dur : 086 ms QT Int : 370 ms P-R-T Axes : 087 074 089 degrees QTc Int : 457 ms Sinus rhythm. with short MA Otherwise normal ECG When compared with ECG of 13-SEP-2018 19:54, No significant change was found Unconfirmed Result
[2018-12-23] MEDS: NICODERM PATCH TD SCH (09:16)
[2018-12-23] MEDS: PRINIVIL PO SCH (09:17)
[2018-12-23] MEDS: PREDNISONE PO SCH (09:17)
[2018-12-23] MEDS: LYRICA PO SCH (09:17)
[2018-12-23] MEDS: FLONASE NAS SCH (09:18)
[2018-12-23] MEDS: ADVAIR 250/50 DISKUS INH SCH (09:58)
--- NOTE | 2018-12-23 18:34 | DISCHARGE SUMMARY ---
ADMISSION DATE: 12/20/2018 DISCHARGE DATE: 12/23/2018 DISCHARGE DIAGNOSES: 1. Acute chronic obstructive pulmonary disease exacerbation. 2. Chronic hypoxic respiratory failure. 3. Acute hypercapnic respiratory failure on chronic hypercarbic respiratory failure. 4. Chronic hypoxic respiratory failure. 5. Essential hypertension. 6. Hyperlipidemia. 7. Nicotine dependence and tobacco abuse 8. Bilateral lower extremity weakness, left upper extremity tremors with history of cervical disk herniation based on history, which was stable during hospital admission, and his complaints have been ongoing for 6 months or more. He was advised to follow up with his regular doctor and discuss about need for spine CT scan or MRI imaging as appropriate. CONSULTATIONS DURING HOSPITALIZATION: None. DISCHARGE MEDICATIONS: Hydroxyzine 25 mg tablet, atorvastatin 20 mg at nighttime, pregabalin 100 mg b.i.d., oxycodone acetaminophen 1 tablet p.o. q.12 hours, lisinopril 30 mg daily, montelukast 10 mg at nighttime, Symbicort 1 puff inhaled b.i.d., albuterol inhaler 2 puffs inhaled q.6 hours as needed, fluticasone nasal spray 1 bottle has been prescribed for 2 sprays intranasally daily, omeprazole 20 mg daily, prednisone 40 mg daily 3 tablets have been prescribed. VITAL SIGNS AT THE TIME OF DISCHARGE: Temperature 97.9 degrees, pulse 81, respiratory rate 20, blood pressure 114/67, saturating 98% on 2 L nasal cannula. PHYSICAL EXAMINATION AT THE TIME OF DISCHARGE.: General: The patient did not appear in any acute distress. HEENT: Oral cavity was moist. Lungs: Air entry bilaterally equal without wheeze, rhonchi, crackles. Cardiovascular: S1, S2 normal. No murmur, rub, or gallop. Abdomen: Soft, nontender. Extremities: He did not have lower extremity edema. Neurologic: On previous neurological examination, he had 2+ reflexes bilaterally, which were brisk on especially knee jerk. HOSPITAL COURSE SUMMARY: Mr. Dyson is a 63-year-old man with past medical history of chronic obstructive pulmonary disease on home oxygen who came to the emergency room with worsening shortness of breath for approximately 3 days without any fevers, chills, or body ache. He also had increasing cough as well. In the ER, he was found to be tachypneic with respiratory rate of 22, and ABG showing acute hypercapnic respiratory failure with pCO2 of 70, requiring BiPAP initially. He was started on intravenous antibiotics and intravenous steroids and was admitted during hospital admission. He was continued on antibiotics though chest x-ray did not detect any infiltrate and steroids. During hospital admission, he started improving rapidly, he was tolerating diet well. He was able to go to the bathroom and come back without getting short of breath using oxygen, which was as per his baseline and was deemed appropriate for discharge. HOSPITAL COURSE PROBLEM CARO: 1. Acute COPD exacerbation, acute hypercarbic hypercapnic respiratory failure on chronic hypercapnic respiratory failure and chronic hypoxic respiratory failure. He was continued on home oxygen, albuterol ipratropium nebulization and other home medications, following which he improved. He would be discharged on p.o. steroids since there were no infiltrate on the chest x-ray and he improved rather rapidly. No antibiotics were prescribed. He was continued on home lisinopril for hypertension, atorvastatin for hyperlipidemia and nicotine patches for tobacco abuse. 2. For his bilateral lower extremity intermittent weakness, he was advised to follow up with his regular doctor and discuss about need for CT scan or MRI of his spine since he previously had history of cervical disk herniation. Also, his symptoms were persistent and ongoing for about 6 months. He was advised to follow up with a regular doctor. No inpatient workup was pursued. TIME SPENT: More than 30 minutes of time was spent in discharging this patient. I counseled him about the importance of regular physical examination, regular primary care provider visits, age- appropriate cancer screening and medical compliance. I also re-emphasized about quitting tobacco use. He verbalized understanding. cc: MD REYES Long
== END 2018-12-23 15:35 | disposition home health service (06) | DRG 190 ==
LOC: SUPCPDRO → ED 16:05 → SUATTDRO 21:53 → 3N 21:53
PROVIDERS: ATTEND Internal Medicine
CPT/HCPCS: 71020; 71046; 80048; 80053; 82550; 82805; 83605; 83735; 83880; 84484; 85025; 85610; 85730; 87040; 87275; 87276; 87804; 93005; 94640; 94761; 96365; 96366; 96375; 99285; A9270; J1650; J1956; J2930; J7030; J7506; J7512